=== PATIENT | male | born 1980 | race Caucasian/White ===

== ENCOUNTER 2016-08-16 21:27 | Emergency (ER) | payer OTHER ==
[~2016-08-16 21:27] MED LIST: ORUDIS75 M1 PO
== END 2016-08-16 22:30 | disposition home or self-care (01) ==
LOC: CFTX 21:27 → CED 21:27 → CFTX 22:30
DX: L03.113 Cellulitis of right upper limb (principal); I10 Essential (primary) hypertension; E78.5 Hyperlipidemia, unspecified; E11.9 Type 2 diabetes mellitus without complications
CPT/HCPCS: 99283